=== PATIENT | female | born 1995 | race African-American/Black ===

== ENCOUNTER 2020-01-13 10:05 | Emergency (ER) | payer OTHER ==
[~2020-01-13] VITALS: Ht 175.3 cm; Wt 72.1 kg
[~2020-01-13 10:05] MED LIST: ALBUTEROL INH; APAP/CODEINE ELI5 M1 PO; BIRTH CONTROL; ZPAK PO
[2020-01-13] MEDS ORDERED: PREDNISONE 20 M20 MG PO (11:23)
[2020-01-13] MEDS ORDERED: VENTOLIN HFA 1818 GM INH (11:23)
[2020-01-13 12:04] VITALS: BP 110/60
== END 2020-01-13 12:05 | disposition home or self-care (01) ==
LOC: ER 10:05
DX: J06.9 Acute upper respiratory infection, unspecified (principal); J45.909 Unspecified asthma, uncomplicated; J04.0 Acute laryngitis; Z79.2 Long term (current) use of antibiotics; Z79.899 Other long term (current) drug therapy